=== PATIENT | female | born 1950 | race Caucasian/White ===

== ENCOUNTER 2017-11-24 17:20 | Emergency (ER) | payer OTHER ==
[~2017-11-24] VITALS: Ht 157.5 cm; Wt 59.0 kg
[~2017-11-24 17:20] MED LIST: CIPRO750 MG; OSEL75CA PO; QVAR7.3 G1; ULTRAM50 MG
[2017-11-24] MEDS ORDERED: NEURONTIN300 MG (17:40)
[2017-11-24] MEDS ORDERED: QVAR8.7 GM (17:41)
== END 2017-11-24 22:58 | disposition home or self-care (01) ==
LOC: ER 17:20
DX: S16.1XXA Strain of muscle, fascia and tendon at neck level, initial encounter (principal); S30.0XXA Contusion of lower back and pelvis, initial encounter; M54.5 Low back pain; V49.9XXA Car occupant (driver) (passenger) injured in unspecified traffic accident, initial encounter; Y93.89 Activity, other specified; Y92.488 Other paved roadways as the place of occurrence of the external cause; Y99.8 Other external cause status

== ENCOUNTER 2018-04-15 08:30 | Emergency (ER) | payer OTHER ==
[~2018-04-15] VITALS: Ht 157.5 cm; Wt 59.0 kg
[~2018-04-15 08:30] MED LIST changes: +NEURONTIN300 MG; +QVAR8.7 GM
== END 2018-04-15 12:47 | disposition home or self-care (01) ==
LOC: ER 08:30
DX: K29.00 Acute gastritis without bleeding (principal)

== ENCOUNTER 2018-08-01 09:10 | Emergency (ER) | payer OTHER ==
[~2018-08-01] VITALS: Ht 152.4 cm; Wt 61.7 kg
[2018-08-01] MEDS ORDERED: ANORO ELLIPTA1 EACH IH (09:26)
[2018-08-01] MEDS ORDERED: PROMETH-CODEIN 65 ML PO ×2 (14:44→14:55)
== END 2018-08-01 16:06 | disposition home or self-care (01) ==
LOC: ER 09:10
DX: J45.998 Other asthma (principal)

== ENCOUNTER 2018-10-10 17:28 | Emergency (ER) | payer OTHER ==
[~2018-10-10] VITALS: Ht 154.9 cm; Wt 62.6 kg
[~2018-10-10 17:28] MED LIST changes: +ANORO ELLIPTA1 EACH IH; +PROMETH-CODEIN 65 ML PO
[2018-10-10] MEDS ORDERED: FOLTX TABLET1 EACH (17:42)
[2018-10-10] MEDS ORDERED: LIPITOR20 MG (17:42)
== END 2018-10-10 21:35 | disposition home or self-care (01) ==
LOC: ER 17:28
DX: K04.7 Periapical abscess without sinus (principal); L27.1 Localized skin eruption due to drugs and medicaments taken internally; T36.1X5A Adverse effect of cephalosporins and other beta-lactam antibiotics, initial encounter; T88.8XXA Other specified complications of surgical and medical care, not elsewhere classified, initial encounter; Y83.8 Other surgical procedures as the cause of abnormal reaction of the patient, or of later complication, without mention of misadventure at the time of the procedure; Y92.89 Other specified places as the place of occurrence of the external cause

== ENCOUNTER 2019-01-11 15:35 | Emergency (ER) | payer OTHER ==
[~2019-01-11] VITALS: Ht 157.5 cm; Wt 62.1 kg
[~2019-01-11 15:35] MED LIST changes: +FOLTX TABLET1 EACH; +LIPITOR20 MG
== END 2019-01-11 20:44 | disposition home or self-care (01) ==
LOC: ER 15:35
DX: G35 Multiple sclerosis (principal)

== ENCOUNTER 2019-10-02 17:33 | Emergency (ER) | payer OTHER ==
[~2019-10-02] VITALS: Ht 157.5 cm; Wt 62.1 kg
== END 2019-10-02 18:39 | disposition home or self-care (01) ==
LOC: ER 17:33
DX: M25.572 Pain in left ankle and joints of left foot (principal)

== ENCOUNTER 2020-06-20 11:27 | Emergency (ER) | payer OTHER ==
[~2020-06-20] VITALS: Ht 157.5 cm; Wt 60.3 kg
[2020-06-20] MEDS ORDERED: KETO10TA2 PO (16:16)
== END 2020-06-20 16:51 | disposition home or self-care (01) ==
LOC: ER 11:27
DX: R10.31 Right lower quadrant pain (principal)

== ENCOUNTER 2020-08-28 10:44 | Emergency (ER) | payer OTHER ==
[~2020-08-28] VITALS: Ht 157.5 cm; Wt 59.0 kg
[~2020-08-28 10:44] MED LIST changes: +KETO10TA2 PO
== END 2020-08-28 12:46 | disposition home or self-care (01) ==
LOC: ER 10:44
DX: M25.572 Pain in left ankle and joints of left foot (principal)

== ENCOUNTER 2020-09-03 17:45 | Emergency (ER) | payer OTHER ==
[~2020-09-03] VITALS: Ht 157.5 cm; Wt 59.9 kg
== END 2020-09-03 20:17 | disposition home or self-care (01) ==
LOC: ER 17:45
DX: G35 Multiple sclerosis (principal); M25.572 Pain in left ankle and joints of left foot

== ENCOUNTER 2020-09-12 16:46 | Emergency (ER) | payer OTHER ==
[~2020-09-12] VITALS: Ht 157.5 cm; Wt 60.8 kg
[2020-09-12] MEDS ORDERED: CELEBREX100 MG PO (17:46)
[2020-09-12] MEDS ORDERED: MEDROLPACK PO (17:46)
== END 2020-09-12 17:54 | disposition home or self-care (01) ==
LOC: ER 16:46
DX: M79.672 Pain in left foot (principal); G35 Multiple sclerosis

== ENCOUNTER 2020-11-02 17:13 | Emergency (ER) | payer OTHER ==
[~2020-11-02] VITALS: Ht 157.5 cm; Wt 59.9 kg
[~2020-11-02 17:13] MED LIST changes: +CELEBREX100 MG PO; +MEDROLPACK PO
== END 2020-11-02 20:00 | disposition home or self-care (01) ==
LOC: ER 17:13
DX: M79.662 Pain in left lower leg (principal); G35 Multiple sclerosis

== ENCOUNTER 2020-12-12 16:04 | Emergency (ER) | payer OTHER ==
[~2020-12-12] VITALS: Ht 157.5 cm; Wt 61.2 kg
[2020-12-12] MEDS ORDERED: QC VITAMIN B (17:07)
== END 2020-12-12 20:08 | disposition home or self-care (01) ==
LOC: ER 16:04
DX: M79.672 Pain in left foot (principal); G35 Multiple sclerosis

== ENCOUNTER 2021-02-18 17:35 | Emergency (ER) | payer OTHER ==
[~2021-02-18] VITALS: Ht 157.5 cm; Wt 61.7 kg
[~2021-02-18 17:35] MED LIST changes: +QC VITAMIN B
== END 2021-02-18 21:53 | disposition home or self-care (01) ==
LOC: ER 17:35
DX: R10.31 Right lower quadrant pain (principal); R10.11 Right upper quadrant pain

== ENCOUNTER 2022-09-01 15:26 | Emergency (ER) | payer OTHER ==
[~2022-09-01] VITALS: Ht 157.5 cm; Wt 59.0 kg
[2022-09-01] MEDS ORDERED: CLEOCIN HCL300 MG PO (15:41)
== END 2022-09-01 17:20 | disposition home or self-care (01) ==
LOC: ER 15:26
DX: K06.8 Other specified disorders of gingiva and edentulous alveolar ridge (principal); Z91.041 Radiographic dye allergy status; Z88.8 Allergy status to other drugs, medicaments and biological substances

== ENCOUNTER 2023-02-09 16:23 | Emergency (ER) | payer OTHER ==
[~2023-02-09] VITALS: Ht 157.5 cm; Wt 61.7 kg
[~2023-02-09 16:23] MED LIST changes: +CLEOCIN HCL300 MG PO
[2023-02-09] MEDS ORDERED: NORFLEX100MG PO (17:48)
[2023-02-09] MEDS ORDERED: DICLOFENAC POTA50 MG PO (17:48)
== END 2023-02-09 17:59 | disposition home or self-care (01) ==
LOC: ER 16:23
DX: M54.2 Cervicalgia (principal); G35 Multiple sclerosis; Z88.8 Allergy status to other drugs, medicaments and biological substances
CPT/HCPCS: 96372; 99283; J1885; J2360

== ENCOUNTER 2023-12-26 13:07 | Emergency (ER) | payer OTHER ==
[~2023-12-26] VITALS: Ht 157.5 cm; Wt 59.9 kg
[~2023-12-26 13:07] MED LIST changes: +DICLOFENAC POTA50 MG PO; +NORFLEX100MG PO
[2023-12-26] MEDS ORDERED: ATORVASTATIN CA10 MG (13:21)
[2023-12-26] MEDS ORDERED: PANTOPRAZOLE SO40 MG (13:21)
[2023-12-26] MEDS ORDERED: GABAPENTIN100 M2 (13:21)
[2023-12-26] MEDS ORDERED: SERTRALINE HCL50 MG (13:22)
[2023-12-26] MEDS ORDERED: LOSARTAN POTASS25 MG (13:22)
[2023-12-26] MEDS ORDERED: KETOROLAC TROMETHAMINE 60 MG VIAL IM STA (15:03)
[2023-12-26] MEDS ORDERED: KETOROLAC TROMETHAMINE 60 MG VIAL IM ONE (15:30)
[2023-12-26 16:24] LABS: HEMATOCRIT 39.8 % (36.0-45.00); HEMOGLOBIN 13.4 g/dL (12.0-15.00); MEAN CELL VOLUME 85.3 fL (80.00-100.00); MEAN CORPUSCULAR HEMOGLOBIN 28.7 pg (27.00-32.0); MEAN CORPUSCULAR HGB CONC 33.6 g/dl (32.0-36.0); PLATELET COUNT 217 K/uL (150-450); RED BLOOD COUNT 4.66 M/uL (4.00-6.00); RED CELL DISTRIBUTION WIDTH 14.7 % (11.5-14.5)
[2023-12-26 16:25] LABS: PH,URINE 6.5 (5.0-8.0); URINE APPEARANCE Clear; URINE BILIRRUBIN Negative (NEGATIVE); URINE BLOOD Negative; URINE COLOR Yellow; URINE GLUCOSE Negative (NEGATIVE); URINE KETONE Negative (NEGATIVE); URINE LEUKOCYTE Negative; URINE NITRATE Negative; URINE PROTEIN Negative (NEGATIVE); URINE UROBILINOGEN 0.2 E.U./dl
[2023-12-26 16:29] LABS: URINE RBC 3.8 uL (0.0-20.8)
[2023-12-26 16:52] LABS: URINE EPITHELIAL CELLS 1.2 uL (0.0-38.8); URINE WBC 1.2 uL (0.0-23.2)
[2023-12-26 16:55] LABS: ALBUMIN 3.8 gm/dL (3.4-5.0); ALKALINE PHOSPHATASE 124 U/L (50-136); ALT/SGPT 17 U/L (12-78); ANION GAP 9 (10.0-20.0); AST/SGOT 23 U/L (15-37); BILIRUBIN,CONJUGATED < 0.10 mg/dL (0.0-0.2); BLOOD UREA NITROGEN 16 mg/dL (7-18); BUN CREA RATIO 22 (7.0-25.0); CARBON DIOXIDE 28 mEq/L (21-32); CHLORIDE 109 mmol/L (98-107); CREATININE SERUM 0.73 mg/dL (0.55-1.02); GFR 77.72; GLUCOSE FASTING 94 mg/dL (65-100); OSMOLALITY SERUM 284 MOSM/KG (275-295); POTASSIUM 3.91 mEq/L (3.5-5.1); SODIUM 142 mmol/L (136-145); TOTAL PROTEIN 7.5 gm/dL (6.4-8.2)
== END 2023-12-26 20:12 | disposition home or self-care (01) ==
LOC: ER 13:08
PROVIDERS: General Practice
DX: M54.9 Dorsalgia, unspecified (principal); G35 Multiple sclerosis; Z91.041 Radiographic dye allergy status; Z88.8 Allergy status to other drugs, medicaments and biological substances
CPT/HCPCS: 36415; 72100; 74176; 96372; 99284; J1885